=== PATIENT | female | born 1960 | race Caucasian/White ===

== ENCOUNTER 2022-01-16 03:36 | Emergency (ER) | payer OTHER ==
[2022-01-16 03:45] VITALS: BP 154/98; PULSE 82; TEMP 98.5; BMI 26.1
[2022-01-16] MEDS ORDERED: KETOROLAC TROMETHAMINE 30 MG/1 ML VIAL IVPUSH ONE (03:53)
[2022-01-16] MEDS ORDERED: SODIUM CHLORIDE 1,000 ML IV STA (03:53)
[2022-01-16] MEDS ORDERED: KETOROLAC TROMETHAMINE 30 MG/1 ML VIAL ONE (03:56)
[2022-01-16 04:56] LABS: BASO % 0.8 % (0-2.0); HEMATOCRIT 43.1 % (32.4-45.2); HEMOGLOBIN 14.9 GM/dL (10.7-15.3); LYMPH % 22.5 % (8-40); MCH 32.8 pg (25.7-33.7); MCHC 34.5 g/dl (32.0-36.0); MEAN PLT VOLUME 8.7 fl (7.5-11.1); MONO % 10.5 % (3.8-10.2); NEUT % 64.2 % (42.8-82.8); PH,URINE 6.5 (5.0-8.0); PLATELET COUNT 394 10^3/uL (134-434); RBC 4.54 M/mm3 (3.60-5.2); RDW 13.4 % (11.6-15.6); URINE APPEARANCE CLEAR; URINE BILIRUBIN NEGATIVE (NEGATIVE); URINE COLOR YELLOW; URINE GLUCOSE (UA) NEGATIVE (NEGATIVE); URINE KETONE NEGATIVE (NEGATIVE); URINE LEUK ESTERASE NEGATIVE (NEGATIVE); URINE NITRITE NEGATIVE (NEGATIVE); URINE PROTEIN NEGATIVE (NEGATIVE); URINE UROBILINOGEN 0.2 mg/dL (0.2-1.0); WHITE BLOOD COUNT 10.6 K/mm3 (4.0-10.0)
[2022-01-16 05:19] LABS: CALCIUM 9.6 mg/dL (8.5-10.1)
[2022-01-16 05:20] LABS: ALBUMIN 4.2 g/dl (3.4-5.0); BLOOD UREA NITROGEN 18.4 mg/dL (7-18)
[2022-01-16 05:23] LABS: CREATININE 0.7 mg/dL (0.55-1.3)
[2022-01-16 05:24] LABS: BILIRUBIN,TOTAL 0.3 mg/dL (0.2-1)
[2022-01-16 05:26] LABS: TOT PROT 7.8 g/dl (6.4-8.2)
== END 2022-01-16 05:56 | disposition home or self-care (01) ==
LOC: SUPCPDRO 03:36 → FER 03:36
PROC: 3E0333Z Introduction of Anti-inflammatory into Peripheral Vein, Percutaneous Approach (ICD-10-PCS; principal; 2022-01-16)
PROC: 3E0337Z Introduction of Electrolytic and Water Balance Substance into Peripheral Vein, Percutaneous Approach (ICD-10-PCS; 2022-01-16)
DX: M54.50 Low back pain, unspecified (principal)
CPT/HCPCS: 36415; 80053; 81003; 85025; 99284-25